=== PATIENT | male | born 1975 | race Caucasian/White ===

== ENCOUNTER 2025-07-14 15:26 | Emergency (ER) | payer BC ==
[2025-07-14 15:33] VITALS: TEMP 98.3; BMI 29.0
[2025-07-14] MEDS ORDERED: THIAMINE HCL 200 MG/2 ML VIAL ONE ×2 (17:05→17:56)
[2025-07-14] MEDS ORDERED: ONDANSETRON 4 MG/2 ML VIAL ONE (17:05)
[2025-07-14] MEDS ORDERED: FOLIC ACID 1 MG TABLET (FP) ONE (17:05)
[2025-07-14 17:33] LABS: MCHC 34.0 g/dl (32.3-36.5); MEAN CELL VOLUME 88.4 fl (79.0-92.2); MEAN PLT VOLUME 9.6 fl (9.4-12.4); RDW 11.9 % (12.1-15.9)
[2025-07-14 17:41] LABS: COCAINE, UR NEGATIVE (NEGATIVE)
[2025-07-14 17:42] LABS: OPIATES, URI NEGATIVE (NEGATIVE); PHENCYCLIDINE,URINE NEGATIVE (NEGATIVE); URINE AMPHETAMINES NEGATIVE (NEGATIVE); URINE BARBITURATES NEGATIVE (NEGATIVE); URINE BENZODIAZEPINES NEGATIVE (NEGATIVE)
[2025-07-14 17:43] LABS: METHADONE, UR NEGATIVE (NEGATIVE)
[2025-07-14] MEDS ORDERED: MAGNESIUM SULFATE IN WATER 2 GM/50 ML IVPB IVPB ONE (18:04)
[2025-07-14] MEDS: ONDANSETRON 4 MG/2 ML VIAL IVPUSH ONE (18:12)
[2025-07-14] MEDS: MAGNESIUM 1GM/D5W - 1 GM/100 ML IVPB IVPB ONE (18:12)
[2025-07-14] MEDS: FOLIC ACID 1 MG TABLET (FP) PO ONE (18:12)
[2025-07-14 18:23] LABS: GLUCOSE,RANDOM 107 mg/dL (74-106); TOT PROT 9.1 g/dl (6.4-8.2)
[2025-07-14 18:24] LABS: CO2 20 mmol/L (21-32)
[2025-07-14 18:26] LABS: ALK PHOS 53 U/L (40-150)
[2025-07-14 18:29] LABS: SGOT/AST 227 U/L (5-34); SGPT/ALT 238 U/L (0-55)
[2025-07-14 18:31] LABS: CREATININE 1.30 mg/dL (0.55-1.3)
[2025-07-14 19:11] LABS: HCV DIAGNOSTIC IN-HOUSE W/RFLX NON-REACTIVE (NONREACTIVE)
[2025-07-14 19:12] LABS: HIV INTERPRETATION NEGATIVE (NEGATIVE)
[2025-07-14] MEDS: THIAMINE HCL 200 MG/2 ML VIAL IVPB ONE (19:33)
[2025-07-14] MEDS: DEXTROSE 5%-LACTATED RINGERS 1,000 ML IV SCH (19:49)
[2025-07-14 19:59] VITALS: BP 145/92; PULSE 94; RESP 16
== END 2025-07-14 21:39 | disposition home or self-care (01) ==
LOC: JER 15:26
PROC: 3E033GC Introduction of Other Therapeutic Substance into Peripheral Vein, Percutaneous Approach (ICD-10-PCS; principal; 2025-07-14)
PROC: 3E033GC Introduction of Other Therapeutic Substance into Peripheral Vein, Percutaneous Approach (ICD-10-PCS; 2025-07-14)
PROC: 3E033GC Introduction of Other Therapeutic Substance into Peripheral Vein, Percutaneous Approach (ICD-10-PCS; 2025-07-14)
PROC: 3E033GC Introduction of Other Therapeutic Substance into Peripheral Vein, Percutaneous Approach (ICD-10-PCS; 2025-07-14)
DX: F10.939 Alcohol use, unspecified with withdrawal, unspecified (principal); Y90.6 Blood alcohol level of 120-199 mg/100 ml; R42 Dizziness and giddiness; R61 Generalized hyperhidrosis; R00.2 Palpitations; R45.1 Restlessness and agitation; R11.0 Nausea
CPT/HCPCS: 36415; 80053; 80307; 83735; 84132; 85027; 86803; 87389; 93005; 93010; 99284-25